=== PATIENT | male | born 1970 | race Caucasian/White ===

== ENCOUNTER 2017-12-02 23:22 | Emergency (ER) | payer OTHER ==
[~2017-12-02] VITALS: Ht 170.2 cm; Wt 72.0 kg
[~2017-12-02 23:22] MED LIST: MORP20DI PO
[2017-12-02 23:43] VITALS: BP 109/74
== END 2017-12-02 23:44 | disposition home or self-care (01) ==
LOC: ER 23:23
DX: R10.30 Lower abdominal pain, unspecified (principal); J44.9 Chronic obstructive pulmonary disease, unspecified; Z88.6 Allergy status to analgesic agent
CPT/HCPCS: 99283

== ENCOUNTER 2018-09-03 23:38 | Emergency (ER) | payer MEDICAID ==
[~2018-09-03] VITALS: Ht 170.2 cm; Wt 160.0 kg
[2018-09-03 23:57] VITALS: BP 129/77
[2018-09-04] MEDS ORDERED: normal saline 1000ML IV soln IVB ONE
== END 2018-09-04 00:04 | disposition home or self-care (01) ==
LOC: ER 23:39
DX: F10.129 Alcohol abuse with intoxication, unspecified (principal); K50.90 Crohn's disease, unspecified, without complications; J44.9 Chronic obstructive pulmonary disease, unspecified; Z76.5 Malingerer [conscious simulation]; Z90.49 Acquired absence of other specified parts of digestive tract; Z59.0 Homelessness; Z88.5 Allergy status to narcotic agent; Z79.899 Other long term (current) drug therapy; Y90.9 Presence of alcohol in blood, level not specified
CPT/HCPCS: 99281